=== PATIENT | male | born 1955 | race African-American/Black ===

== ENCOUNTER 2017-10-11 09:44 | Day surgery (SDC) | payer OTHER ==
--- NOTE | 2017-10-04 16:56 | HP ---
PREOPERATIVE HISTORY AND PHYSICAL: DATE OF ADMISSION/SURGERY: 10/11/17 [facility] DATE OF OFFICE VISIT/ENCOUNTER: 09/28/17 ATTENDING SURGEON: Alda Murray MD * (DICTATED BY JEN CHAU) PROCEDURE: Left index finger trigger finger release. CHIEF COMPLAINT: Left index finger triggering. HISTORY OF PRESENT ILLNESS: This is a 62-year-old male. He is an inmate of [facility]. He is complaining of triggering in the left index finger now for several months. He denies any injury. He feels stiffness , clicking, and locking. Pain ranges from a 6 to an 8/10. He denies any associated numbness or tingling. He is a diabetic. He was treated with a cortisone injection earlier in 2017; however, it was unsuccessful in resolving his symptoms. He would like to proceed with surgical intervention at this time in the form of a left index finger trigger finger release. PAST MEDICAL HISTORY: 1. Diabetes. 2. Hypercholesterolemia. 3. History of peripheral vascular disease. PAST SURGICAL HISTORY: Surgery on right leg for peripheral vascular disease. CURRENT MEDICATIONS: 1. Aspirin 81 mg daily. 2. Folic acid 1 mg daily. 3. Lotrimin AF 1% apply twice daily to affected area p.r.n. 4. Metformin HCl 500 mg b.i.d. 5. Mevacor 50 mg daily. 6. Motrin b.i.d. p.r.n. ALLERGIES: No known drug allergies. FAMILY MEDICAL HISTORY: Diabetes. SOCIAL HISTORY: The patient is incarcerated at [facility]. He is a smoker approximately 8 to 10 cigarettes a day. He denies current recreational drug use and does not drink alcohol. REVIEW OF SYSTEMS: General: Negative for fevers, chills, or night sweats. No known anesthesia problems. HEENT: Negative for headache, lightheadedness, or syncopal episodes. Integumentary: Negative for abrasions, lesions, or open wounds. Cardiothoracic: Negative for hypertension, chest pain, palpitations, or edema. Pulmonary: Negative for shortness of breath with exertion, chronic cough, COPD. GI: Negative for nausea, vomiting, diarrhea, constipation, or GERD. : Negative for nocturia, urinary frequency, urgency, history of UTIs, or kidney problems. Musculoskeletal: Positive for current complaint. Negative for chronic or intermittent back pain or history of fractures. Neurological: Negative for paresthesias, numbness, history of seizure, stroke or epilepsy. Endocrine: Positive for diabetes. Negative for thyroid issues. Hematologic: Negative for easy bruising, anemia, excessive bleeding, or history of DVT. Infectious Disease: Negative for history of MRSA, hepatitis C, and HIV. PHYSICAL EXAMINATION GENERAL: Well-developed, well-nourished 62-year-old male, in no acute distress. VITAL SIGNS: Height 5 feet 9 inches, weight 184 pounds, pulse rate 76, blood pressure 130/83. HEENT: Normocephalic, atraumatic. Pupils are equal, round, and reactive to light and accommodation. Extraocular motions are intact. Throat is clear. NECK: Supple. No palpable lymph nodes. PULMONARY: Lungs are clear to auscultation bilaterally. No wheezes, rales, or rhonchi. CARDIOVASCULAR: Regular rate and rhythm. S1 and S2. No murmurs, rubs, or gallops. No edema. ABDOMEN: Positive bowel sounds, soft, nontender. NEUROLOGICAL: Alert and oriented x3. Cranial nerves II through XII are intact. Sensation is intact to light touch. MUSCULOSKELETAL: On exam of his left hand, his left index finger has mild swelling. He has full extension of the finger, but cannot fully flex into a tight fist. He has tenderness to palpation with A1 nadeem. Skin is intact. Neurovascular function is intact. ASSESSMENT: Left index finger trigger finger. PLAN: The patient is scheduled to undergo a left index finger trigger finger release with Dr. Murray on 10/11/17. He will return to the office in 10 to 14 days postop for followup and suture removal. It was recommended to his facility that Ultracet will be prescribed for postoperative pain management. JEN CHAU [id number]/[facility] #: [id number] MTDD
[~2017-10-11 09:44] MED LIST: Buffered Lidocaine 0.9% SYRIN* 5 ML/SYR SYRINGE INTRADERM ONE; DiMENhydriNATE IV* 50 MG/ML VIAL IV PUSH PRN; Famotidine IV* 10 MG/ML 2 ML (20 mg) IV ONE; Morphine INJ* 2 MG/ML 1 ML CARPUJECT IV PRN; PROCHLORPERAZINE INJ 5 MG/ML 2 ML VIAL IV PRN; fentaNYL* 50 MCG/ML 2 ML VIAL (100 MCG VIAL) IV PRN; oxyCODONE/Acetamin 5/325 MG* TAB PO PRN
[2017-10-11] MEDS ORDERED: Famotidine IV* 10 MG/ML 2 ML (20 mg) ONE (10:17)
[2017-10-11] MEDS ORDERED: fentaNYL* 50 MCG/ML 2 ML VIAL (100 MCG VIAL) ONE (11:47)
[2017-10-11] MEDS ORDERED: Midazolam* 1 MG/ML 5 ML VIAL (5 MG) ONE (11:47)
[2017-10-11] MEDS ORDERED: KETAMINE HCL* 50 MG/ML 10 ML VIAL ONE (11:47)
[2017-10-11] MEDS ORDERED: Lidocaine 1% INJ* 10 MG/ML 30 ML SDV ONE (12:20)
[2017-10-11] MEDS ORDERED: Lidocaine 2% PF * 5 ML VIAL ONE (12:40)
[2017-10-11] MEDS ORDERED: Propofol* 10 MG/ML 20 ML BTL IV PUSH ONE (12:40)
[2017-10-11 14:30] VITALS: BP 128/81
--- NOTE | 2017-10-12 09:08 | OP ---
DATE OF OPERATION: 10/11/17 [facility] DATE OF : 55 SURGEON: Alda Murray MD LOCKER ATTENDANT: JEN Gomez ANESTHESIOLOGIST: Oswaldo Joyce MD ANESTHESIA: Local, MAC. PRE-OP DIAGNOSIS: Left index finger trigger finger. POST-OP DIAGNOSIS: Left index finger trigger finger. OPERATIVE PROCEDURE: Left index finger trigger release. ESTIMATED BLOOD LOSS: Zero. TOURNIQUET TIME: 5 minutes. INDICATION FOR PROCEDURE: Herbert is a 62-year-old male with painful locking of his left index finger who presents for trigger finger release. DESCRIPTION OF PROCEDURE: The patient was brought to the operating room, was given a sedation anesthetic and a local infiltration of 10 cc of 1% plain lidocaine overlying the A1 nadeem his left index finger. The skin of his left hand and forearm was prepped and draped in usual sterile fashion. The hand and forearm were exsanguinated and the tourniquet elevated to 250 mmHg. A transverse incision was made centered over the A1 nadeem. We dissected bluntly through the subcutaneous tissue. The digital neurovascular bundles were retracted. The A1 nadeem was incised longitudinally completely releasing the flexor tendons, which were in good condition. The wound was irrigated and the skin edges reapproximated with 4-0 nylon suture. The wound was dressed with Xeroform, 4x4, Webril, and Naman wrap. The patient tolerated the procedure well and was brought to the recovery room in good condition. [id number]/[facility] #: [id number] MTDD
== END 2017-10-11 14:29 | disposition home or self-care (01) ==
LOC: OREAST 09:44
PROVIDERS: ATTEND Orthopaedic Surgery
DX: M65.322 Trigger finger, left index finger (principal); E11.9 Type 2 diabetes mellitus without complications; Z79.84 Long term (current) use of oral hypoglycemic drugs; E78.00 Pure hypercholesterolemia, unspecified; I73.9 Peripheral vascular disease, unspecified; F17.210 Nicotine dependence, cigarettes, uncomplicated
CPT/HCPCS: J2001; J2250; J2704; J3010